=== PATIENT | female | born 1995 | race Caucasian/White ===

== ENCOUNTER → 2023-07-28 | Outpatient (CLI) | payer OTHER ==
--- NOTE | 2023-07-28 09:44 | MR ---
EXAMINATION TYPE: MR knee RT wo con DATE OF EXAM: 07/28/2023 COMPARISON: None HISTORY: Right knee pain. TECHNIQUE: Multiplanar, multisequence imaging of the right knee is performed without IV contrast. FINDINGS: MEDIAL MENISCUS: There is linear signal in the posterior horn. There is a suggestion of a tiny para m eniscal cyst which would be an indirect sign for subtle linear tear. LATERAL MENISCUS: Linear area of signal extending to the articular surface within the anterior horn c ompatible with linear meniscal tear. CRUCIATE LIGAMENTS: The anterior and posterior cruciate ligaments are intact and unremarkable. COLLATERAL LIGAMENTS: The medial collateral ligament and lateral collateral ligament complex are inta ct and unremarkable. EXTENSOR MECHANISM: Visualized quadriceps and patellar tendons are intact. EFFUSION: No significant suprapatellar joint effusion. POPLITEAL CYST: No popliteal/spaulding cyst. TRICOMPARTMENT SPACES: There is narrowing of the tricompartment joint spaces with no erosive changes. Cartilage is maintained. A tiny marginal spurring. BONE MARROW SIGNAL: No focal abnormal marrow signal is appreciated. IMPRESSION: 1. Findings are compatible with an anterior horn and body lateral meniscal tear. 2. Osteoarthritis. 3. Linear signal in the posterior horn of the medial meniscus. There is a tiny para meniscal cyst and a subtle linear tear would be in the differential diagnosis.
== END | disposition home or self-care (01) ==
LOC: RADMRIMAIN 08:40
PROVIDERS: ATTEND Orthopaedic Surgery
DX: M17.11 Unilateral primary osteoarthritis, right knee (principal); M06.9 Rheumatoid arthritis, unspecified; M23.8X1 Other internal derangements of right knee; M23.006 Cystic meniscus, unspecified meniscus, right knee